=== PATIENT | male | born 1960 | race Caucasian/White ===

== ENCOUNTER 2017-02-19 16:14 | Emergency (ER) | payer SELFPAY ==
[~2017-02-19] VITALS: Ht 182.9 cm; Wt 95.3 kg
[~2017-02-19 16:14] MED LIST: AMLO5TAB4 PO; FLUT16SP2 BNOSTRILS; LORA10TA7 PO; OMEP20TA20 PO
--- NOTE | 2017-02-19 18:01 | NUR ---
56 years old male walk-in to er c/o right hand pain.
[2017-02-19 18:51] VITALS: BP 130/70
--- NOTE | 2017-02-19 18:53 | NUR ---
pt d/c home with prescription after care reviewed understood left er via self alert, oriented x4 ambulatory with steady gait.
== END 2017-02-19 18:54 | disposition home or self-care (01) ==
LOC: ER 16:15
DX: M24.541 Contracture, right hand (principal); I10 Essential (primary) hypertension; K21.9 Gastro-esophageal reflux disease without esophagitis
CPT/HCPCS: A4663